=== PATIENT | male | born 1990 | race Two or more races ===

== ENCOUNTER 2020-05-23 12:35 | Emergency (ER) | payer SELFPAY ==
[~2020-05-23] VITALS: Ht 167.6 cm; Wt 79.4 kg
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
--- NOTE | 2020-05-23 15:00 | NUR ---
PATIENT A/OX4, NO CHANGE IN LOC, RESTING, NO DISTRESS NOTED.
[2020-05-23] MEDS ORDERED: TDAP [DIPH/PERTUSSIS/TET] 0.5 ML VIAL IM ONE (15:04)
[2020-05-23] MEDS: TDAP [DIPH/PERTUSSIS/TET] 0.5 ML VIAL IM ONE (15:18)
[2020-05-23 15:47] LABS: BASOPHILS % (AUTO) 0.3 % (0.0-2.0); EOSINOPHILS % (AUTO) 0.1 % (0.0-6.0); HEMATOCRIT 43 % (39-51); HEMOGLOBIN 13.5 g/dL (13.5-17.5); LYMPHOCYTES # (AUTO) 0.7 /CMM (0.8-4.8); LYMPHOCYTES % (AUTO) 5.8 % (20.0-44.0); MEAN CORPUSCULAR HGB CONC 32 g/dl (31.0-36.0); MEAN CORPUSCULAR VOLUME 67 fL (80-96); MONOCYTES # (AUTO) 0.6 /CMM (0.1-1.30); MONOCYTES % (AUTO) 4.4 % (2.0-12.0); NEUTROPHILS # (AUTO) 11.5 /CMM (1.8-8.9); NEUTROPHILS % (AUTO) 89.4 % (43.0-81.0); PLATELET COUNT (AUTO) 229 /CMM (150-450); RED BLOOD CELL COUNT(AUTO) 6.42 MIL/uL (4.5-6.0); WHITE BLOOD COUNT (AUTO) 12.8 K/uL (4.3-11.0)
[2020-05-23 15:56] LABS: CALCIUM, SERUM 8.8 mg/dL (8.5-10.1); POTASSIUM 4.2 mmol/L (3.5-5.1)
[2020-05-23 16:03] LABS: BILIRUBIN,DIRECT 0.1 mg/dL (0.0-0.2); BILIRUBIN,TOTAL 0.4 mg/dL (0.2-1.0); TOTAL PROTEIN, SERUM 7.9 g/dL (6.4-8.2)
[2020-05-23 16:43] LABS: APPEARANCE,URINE Clear (CLEAR); BILIRUBIN,URINE Negative (NEGATIVE); BLOOD, URINE Negative Ery/uL (NEGATIVE); COLOR,URINE Yellow (YELLOW); KETONES,URINE Negative (NEGATIVE); LEUKOCYTE ESTERASE ,URINE Negative (NEGATIVE); NITRITE, URINE Negative (NEGATIVE); PROTEIN,URINE Negative (NEGATIVE); UGLUCOSE Negative (NEGATIVE); UROBILINOGEN,URINE 0.2 EU/dL (0.2)
--- NOTE | 2020-05-23 17:25 | NUR ---
DR. SHALONDA JACOBS CHIEF WARDEN. AWAITING FOR CALL BACK. PRIMARY RN AWARE.
[2020-05-23] MEDS ORDERED: LIDOCAINE 1%-EPI 1:100,000 20 ML VIAL ONE (17:29)
--- NOTE | 2020-05-23 19:20 | NUR ---
WOUND CLEANSED, LAC REPAIR DONE BY DR. HAYNES, FACIAL ABRASIONS COVERED WITH TRIPLE ANTIBIOTIC OINTMENT. RIGHT KNEE COVERED WITH XEROFORM AND WRAPPED WITH KERLIX AND THEN APPLIED RIGHT KNEE IMMOBILIZER.
--- NOTE | 2020-05-23 19:24 | NUR ---
ENDORSED TO CORNELIA HEREDIA FOR AMA
--- NOTE | 2020-05-23 19:53 | NUR ---
Patient discharged to home in stable condition. Written and verbal after care instructions given. Patient verbalizes understanding of instruction.
[2020-05-23 19:59] VITALS: BP 128/77
== END 2020-05-23 20:00 | disposition home or self-care (01) ==
LOC: ER 12:37
DX: S81.011A Laceration without foreign body, right knee, initial encounter (principal); S01.112A Laceration without foreign body of left eyelid and periocular area, initial encounter; S40.211A Abrasion of right shoulder, initial encounter; V19.88XA Pedal cyclist (driver) (passenger) injured in other specified transport accidents, initial encounter; Y93.55 Activity, bike riding; Y92.89 Other specified places as the place of occurrence of the external cause; Y99.8 Other external cause status
CPT/HCPCS: 12001; 12011; 36415; 70450; 70486; 71045; 72125; 73564; 80048; 80076; 81001; 85025; 85730; 90471; 90715; 99285; A6403 ×2; J3490; 81000-TC